=== PATIENT | female | born 1975 | race African-American/Black ===

== ENCOUNTER 2016-10-29 22:38 | Emergency (ER) | payer OTHER ==
[2016-10-29 22:44] VITALS: BP 135/75; PULSE 84; TEMP 98.8; BMI 29.8
[2016-10-30] MEDS ORDERED: KETOROLAC TROMETHAMINE 60 MG/2 ML VIAL IM ONE (01:21)
[2016-10-30] MEDS ORDERED: KETOROLAC TROMETHAMINE 60 MG/2 ML VIAL ONE (01:28)
--- NOTE | 2016-10-30 01:35 | PDOC ---
History of Present Illness - General History Source: Patient, Friend, Old Records Exam Limitations: No Limitations - History of Present Illness Initial Comments: The patient is a 41 year old female, accompanied by friend, who presents to the emergency department today for further evaluation of worsening joint pain for one month. The patient states that her joint pain changes daily but notes today it was located bilaterally in her wrists and in her left knee. She also states that today her joint pain was the worst it has been since the onset of her symptoms. The patient is followed by her Doctor at [facility] who called on 10/28 with the results of recent tests and advised the patient to follow up with a professor of vegetable science. The patient was noted to have been on antivirals. The patient denies fever, chills, and sweats. The patient denies nausea, vomiting, and diarrhea. The patient denies chest pain, cough, and shortness of breath. PAST MEDICAL HISTORY: Denied PAST SURGICAL HISTORY: x3 SOCIAL HISTORY: None reported MEDICATIONS: Reviewed ALLERGIES: Denied <Kirt Britt - Last Filed: 10/30/16 01:38> <Elma Bradshaw - Last Filed: 10/30/16 02:04> - General Chief Complaint: Pain Stated Complaint: PAIN Time Seen by Provider: 10/30/16 01:10 Past History <Kirt Britt - Last Filed: 10/30/16 01:38> - Past Medical History Anemia: No Asthma: No Cancer: No Cardiac Disorders: No CVA: No COPD: No CHF: No Dementia: No Diabetes: No GI Disorders: No Disorders: No HTN: No Hypercholesterolemia: No HIV: Yes Liver Disease: No Seizures: No Thyroid Disease: No - Psycho/Social/Smoking Cessation Hx Suicidal Ideation: No Smoking History: Never smoked Have you smoked in the past 12 months: No Cigars Per Day: 0 Hx Alcohol Use: No Drug/Substance Use Hx: No Substance Use Type: None Hx Substance Use Treatment: No <Elma Bradshaw - Last Filed: 10/30/16 02:04> - Past Medical History Allergies/Adverse Reactions: Allergies Allergy/AdvReac Type Severity Reaction Status Date / Time No Known Allergies Allergy Verified 10/29/16 22:41 Home Medications: Ambulatory Orders Efavirenz/Emtricitab/Tenofovir [Atripla Tablet (NF)] 1 tab PO HS 09/27/11 Review of Systems - Review of Systems Able to Perform ROS?: Yes Comments:: CONSTITUTIONAL: Absent: fever, chills, diaphoresis, generalized weakness, malaise, loss of appetite HEENT: Absent: rhinorrhea, nasal congestion, throat pain, throat swelling, difficulty swallowing, mouth swelling, ear pain, eye pain, visual Changes CARDIOVASCULAR: Absent: chest pain, syncope, palpitations, irregular heart rate, lightheadedness , peripheral edema RESPIRATORY: Absent: cough, shortness of breath, dyspnea with exertion, orthopnea, wheezing, stridor, hemoptysis GASTROINTESTINAL: Absent: abdominal pain, abdominal distension, nausea, vomiting, diarrhea, constipation, melena, hematochezia GENITOURINARY: Absent: dysuria, frequency, urgency, hesitancy, hematuria, flank pain, genital pain MUSCULOSKELETAL: Present: Bilaterally arthralgia at wrist. Left knee arthralgia. Absent: myalgia. SKIN: Absent: rash, itching, pallor HEMATOLOGIC/IMMUNOLOGIC: Absent: easy bleeding, easy bruising, lymphadenopathy, frequent infections ENDOCRINE: Absent: unexplained weight gain, unexplained weight loss, heat intolerance, cold intolerance NEUROLOGIC: Absent: headache, focal weakness or paresthesias, dizziness, unsteady gait, seizure, mental status changes, bladder or bowel incontinence PSYCHIATRIC: Absent: anxiety, depression, suicidal or homicidal ideation, hallucinations. <Kirt Britt - Last Filed: 10/30/16 01:38> *Physical Exam - Vital Signs Last Vital Signs Temp Pulse Resp BP Pulse Ox 98.8 F 84 18 135/75 99 10/29/16 22:41 10/29/16 22:41 10/29/16 22:41 10/29/16 22:41 10/29/16 22:41 - Physical Exam Comments: GENERAL: Well developed, well nourished. Awake and alert. No acute distress. HEENT: Normocephalic, atraumatic. PERRLA, EOMI. No conjunctival pallor. Sclera are non- icteric. Moist mucous membranes. Oropharynx is clear. NECK: Supple. Full ROM. No JVD. Carotid pulses 2+ and symmetric, without bruits. No thyromegaly. No lymphadenopathy. CARDIOVASCULAR: Regular rate and rhythm. No murmurs, rubs, or gallops. Distal pulses are 2+ and symmetric. PULMONARY: No evidence of respiratory distress. Lungs clear to auscultation bilaterally. No wheezing, rales or rhonchi. ABDOMINAL: Soft. Non-tender. Non-distended. No rebound or guarding. No organomegaly. Normoactive bowel sounds. MUSCULOSKELETAL Normal range of motion at all joints. No bony deformities or tenderness. No CVA tenderness. EXTREMITIES: No cyanosis. No clubbing. No edema. No calf tenderness. SKIN: Warm and dry. Normal capillary refill. No rashes. No jaundice. NEUROLOGICAL: Alert, awake, appropriate. Cranial nerves 2-12 intact. No deficits to light touch and temperature in face, upper extremities and lower extremities. No motor deficits in the in face, upper extremities and lower extremities. Normoreflexic in the upper and lower extremities. Normal speech. Toes are down-going bilaterally. Gait is normal without ataxia. PSYCHIATRIC: Cooperative. Good eye contact. Appropriate mood and affect. <Kirt Britt - Last Filed: 10/30/16 01:38> - Vital Signs Last Vital Signs Temp Pulse Resp BP Pulse Ox 98.8 F 84 18 135/75 99 10/29/16 22:41 10/29/16 22:41 10/29/16 22:41 10/29/16 22:41 10/29/16 22:41 <Elma Bradshaw - Last Filed: 10/30/16 02:04> ED Treatment Course - Medications Given in the ED: ED Medications Discontinued Medications Generic Name Dose Route Start Last Admin Trade Name Freq PRN Reason Stop Dose Admin Ketorolac Tromethamine 60 mg 10/30/16 01:21 10/30/16 01:38 Toradol Injection - IM 10/30/16 01:22 60 mg ONCE ONE Administration <Kirt Britt - Last Filed: 10/30/16 01:38> Medical Decision Making - Medical Decision Making 10/30/16 01:57 41 yo female has had joint pain for a month and has been seen by her PCP at [facility] for this complaint -she said that she had labs done by her PCP recently and to date the results were unremarkable -her primary physician has referred her to a professor of vegetable science pt DENIES fever,chills,nausea,vomiting,bull's eye rash Tonight she presented because her naprosen had not relieved her pain Lyme titer was sent pt was given toradol IM and instructed to call the specialist to make an appointment <Elma Bradshaw - Last Filed: 10/30/16 02:04> *DC/Admit/Observation/Transfer - Attestations Scribe Attestion: Documentation prepared by Kirt Britt, acting as expert medical writer for Dr. Elma Bradshaw MD. <Kirt Britt - Last Filed: 10/30/16 01:38> <Elma Bradshaw - Last Filed: 10/30/16 02:04> Diagnosis at time of Disposition: Joint pain Qualifiers: Joint pain location: wrist Laterality: bilateral Qualified Code(s): M25.531 - Pain in right wrist - Discharge Dispostion Disposition: HOME Condition at time of disposition: Stable - Referrals Referrals: STAFF,NOT ON [Primary Care Provider] - - Patient Instructions Printed Discharge Instructions: DI for Joint Pain Additional Instructions: Please call the specialist that you were referred to by your regular physician for further evaluation and treatment
== END 2016-10-30 02:19 | disposition home or self-care (01) ==
LOC: JER 22:38
PROC: 3E0233Z Introduction of Anti-inflammatory into Muscle, Percutaneous Approach (ICD-10-PCS; principal; 2016-10-29)
DX: M25.531 Pain in right wrist (principal); M25.562 Pain in left knee
CPT/HCPCS: 36415; 86618; 96372; 99282-25

== ENCOUNTER 2024-04-11 08:22 | Emergency (ER) | payer OTHER ==
[2024-04-11 08:38] VITALS: BP 139/79; PULSE 86; RESP 18; TEMP 98; BMI 38.9
[2024-04-11] MEDS ORDERED: KETOROLAC TROMETHAMINE 30 MG/1 ML VIAL ONE (09:13)
[2024-04-11] MEDS ORDERED: CYCLOBENZAPRINE HCL 10 MG TABLET (FP) ONE (09:13)
[2024-04-11] MEDS: KETOROLAC TROMETHAMINE 30 MG/1 ML VIAL IM ONE (09:18)
[2024-04-11] MEDS: CYCLOBENZAPRINE HCL 10 MG TABLET (FP) PO ONE (09:18)
== END 2024-04-11 10:19 | disposition home or self-care (01) ==
LOC: JER 08:22
PROC: 3E0133Z Introduction of Anti-inflammatory into Subcutaneous Tissue, Percutaneous Approach (ICD-10-PCS; principal; 2024-04-11)
DX: M79.604 Pain in right leg (principal)
CPT/HCPCS: 99284-25